=== PATIENT | female | born 1960 | race Caucasian/White ===

== ENCOUNTER 2019-08-23 16:02 | Inpatient (IN) | payer OTHER, SELFPAY ==
[2019-08-23 16:11] VITALS: BP 139/85; PULSE 70; RESP 16; TEMP 36.8; O2SAT 96; BMI 25.7
[2019-08-23 16:21] VITALS: RESP 16
--- NOTE | 2019-08-23 16:40 | ED_ITS ---
HPI - Psych General: Chief Complaint: Psychiatric Symptoms Stated Complaint: SI Time Seen by Provider: 08/23/19 16:23 Source: patient Mode of arrival: EMS Limitations: no limitations History of Present Illness: HPI Narrative: 58-year-old female patient with a history of depression who presents to the emergency department with complaints of a suicidal ideation. She was brought in by EMS. Her plan is to overdose on her pills. She states that she is out of options and at the end of her rope, she is all alone as her children do not like her. She was recently discharged from an inpatient rehab facility for alcohol. Because she is wanting some help she requested to be brought in here for evaluation. complaint: suicidal ideation Duration: constant Associated symptoms: Reports suicidal ideation Review of Systems General: Reports: 10 or more systems reviewed and unremarkable except in HPI and below Const: Denies: fever(s), chills or body aches Eyes: Denies: change in vision or blurry vision Card: Denies: palpitations, irregular heart rhythm, edema or swelling of feet/ankles Resp: Denies: dyspnea, productive cough or non-productive cough GI: Denies: abdominal pain, nausea or vomiting : Denies: flank pain, difficulty voiding, dysuria, urinary frequency, urinary urgency or urinary hesitancy Musc: Denies: neck pain, back pain or extremity swelling Skin/Breast: Denies: rash, pruritus or erythema Neuro: Denies: headache(s), numbness in extremities or weakness in extremities Psych: Reports: suicidal ideation Endo: Denies: polyuria, polydipsia or tired all the time [facility] ED PFSH: Social History Smoking and tobacco status: current every day smoker Physical Exam Const: COMMON NORMALS: no acute distress, average body habitus, patient oriented x3, no limitations, healthy appearing, alert and well nourished Neck/C-Spine: COMMON NORMALS: no meningeal signs and no JVD Resp: COMMON NORMALS: normal respiratory effort, No retractions, No use of accessory muscles, clear to auscultation bilaterally and percussion normal AUSCULTATION: clear to auscultation bilaterally PERCUSSION: percussion normal Cardio: COMMON NORMALS: no JVD, regular rate, regular rhythm, S1 normal heart sound present, S2 normal heart sound present, No gallops present (Cardio), No clicks present (Cardio), No murmurs present (Cardio), No rub (Cardio) and Peripheral pulses 2+ throughout RATE: regular rate RHYTHM: regular rhythm HEART SOUNDS: S1 normal heart sound present and S2 normal heart sound present PERIPHERAL PULSES: Peripheral pulses 2+ throughout GI: COMMON NORMALS: Normal to inspection, nondistended, normoactive bowel sounds present, Soft to palpation, non-tender, No hepatosplenomegaly present, no masses and no bruits PALPATION: Yes Soft to palpation and Yes No hepatosplenomegaly present : COMMON NORMALS: Yes no CVA tenderness BLADDER/KIDNEY EXAM: Yes no CVA tenderness Back/Pelvis: COMMON NORMALS: no CVA tenderness Extremity: COMMON NORMALS: normal to inspection, full ROM, capillary refill normal, no calf tenderness and no pedal edema Neuro: COMMON NORMALS: patient oriented x3 SENSORIUM/ORIENTATION: Yes alert MENINGEAL SIGNS: Yes no meningeal signs Skin: COMMON NORMALS: no rashes or lesions noted, no wounds, turgor normal, no jaundice, no petechiae and no mottling GENERAL SKIN EXAM: no rashes or lesions noted and turgor normal MDM - Psych MDM Narrative: Medical decision making narrative: 58-year-old homeless lady who presents to the emergency department with suicidal ideations. She has been medically cleared and is admitted to the neuropsychiatric unit for further evaluation and management. Lab Data: Labs: Lab Results 08/23/19 08/23/19 08/23/19 Range/Units 16:30 16:30 16:30 WBC (4.0-10.0) 10^3/ uL RBC (4.1-5.3) 10^6/u L Hgb (11.5-15.3) g/dL Hct (37.0-47.0) % MCV (81-99) fL MCH (28.0-34.0) pg MCHC (30.0-36.0) g/dL RDW (12.1-15.1) % Plt Count (130-400) 10^3/c mm MPV (7.4-10.4) fL Neut % (Auto) % Lymph % (Auto) % [place] % (Auto) % Eos % (Auto) % Baso % (Auto) % Neut # (Auto) (1.8-7.7) 10^3/u L Lymph # (Auto) (0.8-4.8) 10^3/u L [place] # (Auto) (0.2-0.9) 10^3/u L Eos # (Auto) (0.0-0.8) 10^3/u L Baso # (Auto) (0.0-0.1) 10^3/u L Nucleated RBC % (a uto) % Nucleated RBCs # /100WBC Sodium (136-145) mmol/L Potassium (3.5-5.1) mmol/L Chloride (98-107) mmol/L Carbon Dioxide (22-29) mmol/L Anion Gap (5-19) BUN (6-20) mg/dL Creatinine (0.5-0.9) mg/dL GFR Calculation (90-130) mL/min Glucose (65-115) mg/dL Calculated Osmolal ity (285-295) mOsm/k g Calcium (8.5-10.5) mg/dL Total Bilirubin (0.15-1.2) mg/dL AST (0-32) U/L ALT (0-33) U/L Alkaline Phosphata se (35-105) IU/L Total Protein (6.6-8.7) g/dL Albumin (3.5-5.2) g/dL Globulin (1.3-4.6) g/dL HCG, Qual Negative (Negative) Urine Color Yellow (Yellow) Urine Appearance Hazy A (CLEAR) Urine pH 6 (5-7) Ur Specific Gravit y 1.020 (1.005-1.030) Urine Protein Neg (Negative) Urine Glucose (UA) Norm (Normal) Urine Ketones 1+ H (Negative) Urine Blood 2+ H (Negative) Urine Nitrate Negative (Negative) Urine Bilirubin Neg (NEGATIVE) Urine Urobilinogen Norm (Negative) mg/dL Ur Leukocyte Keturah ase 2+ H (Negative) Urine RBC 0-4 H (0-2) /hpf Urine WBC 10-15 H (0-5) /hpf Ur Squamous Epith Cells 10-15 H (0-5) Amorphous Sediment Not Reportable Urine Bacteria 1+ H (NONE) Salicylates (3-10) mg/dL Urine Opiates Scre en Negative (Negative) ng/mL Acetaminophen (10-30) ug/mL Ur Barbiturates Sc reen Negative (Negative) ng/mL Ur Phencyclidine S crn Negative (Negative) ng/mL Ur Amphetamines Sc reen Negative (Negative) ng/mL U Benzodiazepines Scrn Positive H (Negative) ng/mL Urine Cocaine Scre en Negative (Negative) ng/mL U Marijuana (THC) Screen Negative (Negative) ng/mL Ethyl Alcohol (0-10) mg/dL 08/23/19 08/23/19 Range/Units 17:16 17:16 WBC 6.0 (4.0-10.0) 10^3/ uL RBC 4.19 (4.1-5.3) 10^6/u L Hgb 13.5 (11.5-15.3) g/dL Hct 39.4 (37.0-47.0) % MCV 94.0 (81-99) fL MCH 32.2 (28.0-34.0) pg MCHC 34.3 (30.0-36.0) g/dL RDW 13.3 (12.1-15.1) % Plt Count 318 (130-400) 10^3/c mm MPV 9.9 (7.4-10.4) fL Neut % (Auto) 57.7 % Lymph % (Auto) 29.4 % [place] % (Auto) 9.2 % Eos % (Auto) 2.7 % Baso % (Auto) 0.8 % Neut # (Auto) 3.4 (1.8-7.7) 10^3/u L Lymph # (Auto) 1.8 (0.8-4.8) 10^3/u L [place] # (Auto) 0.6 (0.2-0.9) 10^3/u L Eos # (Auto) 0.2 (0.0-0.8) 10^3/u L Baso # (Auto) 0.1 (0.0-0.1) 10^3/u L Nucleated RBC % (a uto) 0 % Nucleated RBCs # 0.0 /100WBC Sodium 124 L (136-145) mmol/L Potassium 4.0 (3.5-5.1) mmol/L Chloride 89 L (98-107) mmol/L Carbon Dioxide 24 (22-29) mmol/L Anion Gap 15.0 (5-19) BUN 12 (6-20) mg/dL Creatinine 0.7 (0.5-0.9) mg/dL GFR Calculation 85.6 L (90-130) mL/min Glucose 92 (65-115) mg/dL Calculated Osmolal ity 254 L (285-295) mOsm/k g Calcium 9.4 (8.5-10.5) mg/dL Total Bilirubin 0.4 (0.15-1.2) mg/dL AST 19 (0-32) U/L ALT 20 (0-33) U/L Alkaline Phosphata se 93 (35-105) IU/L Total Protein 6.2 L (6.6-8.7) g/dL Albumin 4.1 (3.5-5.2) g/dL Globulin 2.1 (1.3-4.6) g/dL HCG, Qual (Negative) Urine Color (Yellow) Urine Appearance (CLEAR) Urine pH (5-7) Ur Specific Gravit y (1.005-1.030) Urine Protein (Negative) Urine Glucose (UA) (Normal) Urine Ketones (Negative) Urine Blood (Negative) Urine Nitrate (Negative) Urine Bilirubin (NEGATIVE) Urine Urobilinogen (Negative) mg/dL Ur Leukocyte Keturah ase (Negative) Urine RBC (0-2) /hpf Urine WBC (0-5) /hpf Ur Squamous Epith Cells (0-5) Amorphous Sediment Urine Bacteria (NONE) Salicylates < 0.3 L (3-10) mg/dL Urine Opiates Scre en (Negative) ng/mL Acetaminophen < 5.0 L (10-30) ug/mL Ur Barbiturates Sc reen (Negative) ng/mL Ur Phencyclidine S crn (Negative) ng/mL Ur Amphetamines Sc reen (Negative) ng/mL U Benzodiazepines Scrn (Negative) ng/mL Urine Cocaine Scre en (Negative) ng/mL U Marijuana (THC) Screen (Negative) ng/mL Ethyl Alcohol < 10 (0-10) mg/dL Discharge Plan Discharge Patient Disposition: Admitted As Inpatient Admit Provider: Krasten Yates Clinical Impression: Suicidal ideation Condition: Stable Interventions: ED Discharge Assessment Last Done: 08/23/19 18:55 ED Charges Last Done: 08/23/19 18:55 Discharge Date/Time: 08/23/19 18:59 Coding Level of Care Code ED Cable Ferry Operator for Juan Smith
[2019-08-23 17:13] LABS: Urine Appearance Hazy (CLEAR); Urine Color Yellow (Yellow); pH Urine 6 (5-7)
[2019-08-23 17:14] LABS: Add Urine Microscopic? YES; Bilirubin Urine Neg (NEGATIVE); Blood Urine 2+ (Negative); Glucose Urine UA Norm (Normal); HCG Qualitative Urine. Negative (Negative); Ketones Urine 1+ (Negative); Leukocyte Esterase Urine 2+ (Negative); Nitrate Urine Negative (Negative); Protein Urine Neg (Negative); Urobilinogen Urine Norm (Negative)
[2019-08-23 17:20] LABS: Amphetamines Screen Urine Negative (Negative); Barbiturates Screen Urine Negative (Negative); Benzodiazepines Screen Urine Positive (Negative); Cocaine Screen Urine Negative (Negative); Opiate Screen Urine Negative (Negative); PCP Screen Urine Negative (Negative); THC Screen Urine Negative (Negative)
[2019-08-23 17:22] LABS: Add Urine Culture? No; Bacteria Urine 1+; RBC Urine 0-4 /hpf (0-2)
[2019-08-23] MEDS: nicotine 21 mg Patch 1 PATCH TRANSDERMA (17:24)
[2019-08-23 17:35] VITALS: PULSE 68; RESP 17; O2SAT 94
[2019-08-23 17:35] LABS: Basophils # 0.1 10^3/uL (0.0-0.1); Basophils % 0.8 %; Eosinophils # 0.2 10^3/uL (0.0-0.8); Eosinophils % 2.7 %; Hematocrit 39.4 % (37.0-47.0); Hemoglobin 13.5 g/dL (11.5-15.3); Lymphocytes # 1.8 10^3/uL (0.8-4.8); Lymphocytes % 29.4 %; Mean Corpuscular HGB Conc 34.3 g/dL (30.0-36.0); Mean Corpuscular Hemoglobin 32.2 pg (28.0-34.0); Mean Platelet Volume 9.9 fL (7.4-10.4); Monocytes # 0.6 10^3/uL (0.2-0.9); Monocytes % 9.2 %; Neutrophils # 3.4 10^3/uL (1.8-7.7); Neutrophils % 57.7 %; Nucleated Red Blood Cells % 0 %; Platelet Count 318 10^3/cmm (130-400); Red Blood Count 4.19 10^6/uL (4.1-5.3); Red Cell Distribution Width 13.3 % (12.1-15.1)
[2019-08-23 17:49] LABS: Alanine Aminotransferase 20 U/L (0-33); Albumin Level 4.1 g/dL (3.5-5.2); Alkaline Phosphatase 93 IU/L (35-105); Aspartate Amino Transferase 19 U/L (0-32); Blood Urea Nitrogen 12 mg/dL (6-20); Calcium 9.4 mg/dL (8.5-10.5); Carbon Dioxide 24 mmol/L (22-29); Chloride 89 mmol/L (98-107); Globulin 2.1 g/dL (1.3-4.6); Glomerular Filtration Rate 85.6 mL/min (90-130); Glucose 92 mg/dL (65-115); Osmolality Calculated 254 mOsm/kg (285-295); Sodium 124 mmol/L (136-145); Total Bilirubin 0.4 mg/dL (0.15-1.2); Total Protein 6.2 g/dL (6.6-8.7)
[2019-08-23 18:25] LABS: Acetaminophen < 5.0 ug/mL (10-30); Alcohol Level < 10 mg/dL (0-10); Salicylate < 0.3 mg/dL (3-10)
[2019-08-23 18:55] VITALS: BP 125/71; PULSE 70; RESP 16; O2SAT 95
--- NOTE | 2019-08-23 19:56 | PC.NURSE ---
Faint expiratory wheeze in left lower lobe.
--- NOTE | 2019-08-23 20:12 | PC.NURSE ---
The patient stated she does not have current use of EtOH or street drugs.
--- NOTE | 2019-08-23 20:17 | PC.NURSE ---
Faint expiratory wheeze in lower left lobe.
[2019-08-23 22:03] VITALS: BP 108/72; PULSE 72; RESP 22; TEMP 36.8; O2SAT 94
[2019-08-24 06:13] VITALS: BP 147/79; PULSE 70; RESP 20; TEMP 36.7; O2SAT 97
[2019-08-24 08:45] VITALS: PULSE 69; RESP 16; O2SAT 95
[2019-08-24] MEDS: gabapentin 400 mg Capsule PO ×3 (09:10→21:05)
[2019-08-24] MEDS: citalopram 20 mg Tablet PO (09:11)
[2019-08-24] MEDS: buPROPion SR (12 HR) 150 mg Tablet PO ×2 (09:11→17:47)
[2019-08-24] MEDS: amlodipine 5 mg Tablet PO (09:11)
[2019-08-24] MEDS: LORazepam 0.5 mg Tablet PO ×2 (09:15→17:47)
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
--- NOTE | 2019-08-24 13:55 | PC.RESP ---
Smoking Cessation information and a schedule of classes sent to patient.
[2019-08-24] MEDS: hyDROXYzine 25 mg Capsule 50 MG PO (14:47)
[2019-08-24 15:52] LABS: Bilirubin Urine Neg (NEGATIVE); Blood Urine Trace (Negative); Glucose Urine UA Norm (Normal); Ketones Urine 1+ (Negative); Leukocyte Esterase Urine Negative (Negative); Nitrate Urine Negative (Negative); Protein Urine Neg (Negative); Urine Appearance Clear (CLEAR); Urine Color Yellow (Yellow); Urobilinogen Urine Norm (Negative); pH Urine 6.5 (5-7)
[2019-08-24 16:22] LABS: Add Urine Culture? No; RBC Urine 0-4 /hpf (0-2); Squamous Epithelial Cell Urine 0-4 (0-5)
[2019-08-24] MEDS: zolpidem 5 mg Tablet PO (21:05)
[2019-08-24 21:06] VITALS: PULSE 71; RESP 16; O2SAT 98
[2019-08-24 21:37] VITALS: BP 145/84; PULSE 68; RESP 17; TEMP 36.7; O2SAT 95
[2019-08-25 06:00] VITALS: BP 134/81; PULSE 76; RESP 16; TEMP 36.6; O2SAT 94
[2019-08-25] MEDS: buPROPion SR (12 HR) 150 mg Tablet PO (08:21)
[2019-08-25] MEDS: gabapentin 400 mg Capsule PO ×3 (08:21→20:52)
[2019-08-25] MEDS: LORazepam 0.5 mg Tablet PO ×2 (08:22→17:38)
[2019-08-25] MEDS: amlodipine 5 mg Tablet PO (08:23)
[2019-08-25] MEDS: citalopram 20 mg Tablet PO (08:23)
[2019-08-25 09:01] VITALS: PULSE 93; RESP 18; O2SAT 98
--- NOTE | 2019-08-25 11:17 | P.PN_ITS ---
Subjective NPU Subjective: Interval history: Shantelle presented today very clear about her interest in something for my anxiety. She was only able to say it was something mixed with Haldol when she would get medication in hospitalized settings. Seeming to allude to Ativan or something like that. We discussed the fact that our desire would be for her to have something non-addictive and her an swer to that was that what ever was being given would not have to be given outside of the hospital. I was clear that the goal would be that it would be something that can be given outside the hospital. She reported that she thought that Haldol was helpful and could she start that which I reported she already had it for as needed use if she should use it. She then tried to get the nurse to mix something in there with the Haldol it might help with anxiety giving the impression that she is very aware of what she is doing. Mental Status Exam MSE Comments: This is a well-nourished, well-developed, white female, with adequate dress, grooming, and eye contact. No abnormal movements, except for mild psychomotor retardation. Cooperative with exam in no acute distress. Speech was decreased rate and volume. Mood described as anxious; affect subdued. Thought process, organized. Thought content: patient is endorsing suicidal ideation, This is a well-nourished, well-developed, white female, with adequate dress, grooming, and eye contact. No abnormal movements, except for mild psychomotor retardation. Cooperative with exam in no acute distress. Speech was decreased rate and volume. Mood described as okay; affect congruent. Thought process, organized. Thought content: patient is still endorsing suicidal ideation, but denied homicidal ideation; there were no delusions reported or noted, patient denied any auditory or visual hallucinations. Attention, concentration, and memory appear intact but none were formally tested. She is alert and oriented times three. Insight and judgment are limited. 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 Continue current medication. We will consider discontinuing of some medications to streamline her regimen. Continue q-15 minute checks for safety. Encourage individual and milieu therapy. Will explore medications and see if we can clean up her medication regime. Involuntary Hold Information 96 Hour Hold: 96 Hour Involuntary Admission: No Attestations NPU Medical Necessity Statement*: Inpatient hospitalization is medically necessary and the clinically appropriate intervention, at this time. We will review medications and consider changes as appropriate. Likely length of stay is 2-3 days. Coding Level of Care Code Acute Amusement Or Recreation Card Checker for Juan Smith
[2019-08-25] MEDS: haloperidol 5 mg Tablet PO (11:43)
--- NOTE | 2019-08-25 11:43 | PC.NURSE ---
Pt given 5mg haldol p.o. as ordered prn per Dr. Yates request. Staff will continue to monitor.
[2019-08-25 14:00] VITALS: BP 123/84; PULSE 102; RESP 19; TEMP 37
[2019-08-25] MEDS: hyDROXYzine 25 mg Capsule 50 MG PO (14:09)
--- NOTE | 2019-08-25 14:09 | PC.NURSE ---
Addendum entered by Jennifer Quinteros LPN 08/25/19 16:10: prn med effective no further c/o anxiety Original Note: PRN VISTARIL 50 MG GIVEN PO PER PT C/O STATED ANXIETY. PT HAS ISOLATED TO ROOM MOST OF THE DAY. WILL CONT TO MONITOR.
[2019-08-25] MEDS: buPROPion SR (12 HR) 100 mg Tablet 200 MG PO (17:38)
[2019-08-25] MEDS: zolpidem 5 mg Tablet PO (20:52)
[2019-08-25 21:00] VITALS: PULSE 86; RESP 16; O2SAT 96
[2019-08-25 22:00] VITALS: BP 120/84; PULSE 91; RESP 18; TEMP 36.8; O2SAT 95
[2019-08-26 06:00] VITALS: BP 143/78; PULSE 74; RESP 17; TEMP 36.6; O2SAT 93
[2019-08-26 08:56] VITALS: PULSE 93; RESP 17; O2SAT 96
[2019-08-26] MEDS: gabapentin 400 mg Capsule PO ×3 (09:40→20:37)
[2019-08-26] MEDS: LORazepam 0.5 mg Tablet PO ×2 (09:40→18:01)
[2019-08-26] MEDS: amlodipine 5 mg Tablet PO (09:40)
[2019-08-26] MEDS: hyDROXYzine 25 mg Capsule 50 MG PO ×2 (09:40→20:37)
[2019-08-26] MEDS: citalopram 20 mg Tablet PO (09:40)
[2019-08-26] MEDS: buPROPion SR (12 HR) 100 mg Tablet 200 MG PO ×2 (09:40→18:01)
[2019-08-26] MEDS: haloperidol 5 mg Tablet PO (11:44)
--- NOTE | 2019-08-26 13:45 | P.PN_ITS ---
Subjective NPU Subjective: Interval history: Shantelle presented today reporting that that Haldol has been helpful and she is wondering if she can have it once she leaves. She reports that it calms her down and helps with her anxiety. We discussed the risks benefits and alternatives of adding Haldol as a scheduled medication and she understood and agreed to proceed as is documented in this note. We discussed the fact that the treatment team would convene tomorrow morning and we would try to see what options are available for her out of there in the community with a tentative discharge for the beginning of the week. Mental Status Exam MSE Comments: This is a well-nourished, well-developed, white female, with adequate dress, grooming, and eye contact. Who appears to be wearing a wig. No abnormal movements, except for mild psychomotor retardation. Cooperative with exam in no acute distress. Speech was decreased rate and volume. Mood described as a little better; affect less subdued. Thought process, organized. Thought content: patient denied suicidal or homicidal ideation; there were no delusions reported or noted, patient denied any auditory or visual hallucinations. Attention, concentration, and memory appear intact but none were formally tested. She is alert and oriented times three. Insight and judgment are limited. Vitals/I&O/Wt Last Vital Signs Temp 98.2 F 08/26/19 20:28 Pulse 71 08/26/19 20:28 Resp 15 08/26/19 20:28 BP 123/74 08/26/19 20:28 Pulse Ox 97 08/26/19 20:28 Weight last 48 hrs Weight 65.544 kg Data NPU : 08/23/19 17:16 08/23/19 17:16 A&P Additional A&P Information (1) Suicidal ideation: (2) Malingering: (3) Alcohol abuse: (4) Depressed: (5) Anxiety: This is a 58 year old, white female, with depressive disorder, unspecified, anxiety disorder, unspecified, and alcohol use disorder, severe, in remission, who presents on significant amounts of medication with a reported desire to consider medication changes. Continue current medication. Start Haldol 5 mg p.o. every morning 2 see if a standing dose might help. We will consider discontinuing some of her Seroquel. Continue q-15 minute checks for safety. Encourage individual and milieu therapy. Will explore medications and see if we can clean up her medication regime. Involuntary Hold Information 96 Hour Hold: 96 Hour Involuntary Admission: No Attestations NPU Medical Necessity Statement*: Inpatient hospitalization is medically necessary and the clinically appropriate intervention, at this time. We will review medications and consider changes as appropriate. Likely length of stay is 1-2 days. Coding Level of Care Code Acute Senior Information Security Architect for Juan Smith
[2019-08-26 14:00] VITALS: BP 114/77; PULSE 84; RESP 18; TEMP 37.1
[2019-08-26 20:20] VITALS: PULSE 101; RESP 16; O2SAT 98
[2019-08-26 20:28] VITALS: BP 123/74; PULSE 71; RESP 15; TEMP 36.8; O2SAT 97
[2019-08-26] MEDS: zolpidem 5 mg Tablet PO (20:37)
--- NOTE | 2019-08-26 21:10 | PC.NURSE ---
pt given scheduled gabapentin and seroquel as well as ambien and vistaril per request.
[2019-08-27 06:00] VITALS: BP 129/96; PULSE 66; RESP 14; TEMP 36.6; O2SAT 96
[2019-08-27] MEDS: citalopram 20 mg Tablet PO (08:25)
[2019-08-27] MEDS: amlodipine 5 mg Tablet PO (08:26)
[2019-08-27] MEDS: LORazepam 0.5 mg Tablet PO ×2 (08:26→17:00)
[2019-08-27] MEDS: gabapentin 400 mg Capsule PO ×3 (08:26→20:52)
[2019-08-27] MEDS: buPROPion SR (12 HR) 100 mg Tablet 200 MG PO ×2 (08:27→16:59)
[2019-08-27] MEDS: haloperidol 5 mg Tablet PO (08:27)
[2019-08-27 08:30] VITALS: PULSE 88; RESP 18; O2SAT 95
--- NOTE | 2019-08-27 09:34 | PM.NPN ---
Subjective NPU Subjective: Interval history: Shantelle presented today reporting that she is working with social work to possibly get a ticket back to the area where she was in the [facility] tomorrow. She is doing fine on the medication and tolerated the Haldol standing dose this morning and reports that she is eating and sleeping well. Mental Status Exam MSE Comments: This is a well-nourished, well-developed, white female, with adequate dress, grooming, and eye contact. Who appears to be wearing a wig. No abnormal movements, except for mild psychomotor retardation. Cooperative with exam in no acute distress. Speech was decreased rate and volume. Mood described as a little better; affect less subdued. Thought process, organized. Thought content: patient denied suicidal or homicidal ideation; there were no delusions reported or noted, patient denied any auditory or visual hallucinations. Attention, concentration, and memory appear intact but none were formally tested. She is alert and oriented times three. Insight and judgment are limited. Vitals/I&O/Wt Last Vital Signs Temp 97.7 F 08/27/19 22:00 Pulse 73 08/27/19 22:00 Resp 18 08/27/19 22:00 BP 138/78 08/27/19 22:00 Pulse Ox 95 08/27/19 22:00 Weight last 48 hrs Weight 65.544 kg Data NPU : 08/23/19 17:16 08/23/19 17:16 A&P Additional A&P Information (1) Suicidal ideation: (2) Malingering: (3) Alcohol abuse: (4) Depressed: (5) Anxiety: This is a 58 year old, white female, with depressive disorder, unspecified, anxiety disorder, unspecified, and alcohol use disorder, severe, in remission, who presents on significant amounts of medication with a reported desire to consider medication changes. Continue current medication. Continue q-15 minute checks for safety. Encourage individual and milieu therapy. Will explore medications and see if we can clean up her medication regime. Involuntary Hold Information 96 Hour Hold: 96 Hour Involuntary Admission: No Attestations NPU Medical Necessity Statement*: Inpatient hospitalization is medically necessary and the clinically appropriate intervention, at this time. We will review medications and consider changes as appropriate. Likely length of stay is 1-2 days. Coding Level of Care Code Acute Acoustic Engineer for Juan Smith
[2019-08-27 13:49] VITALS: BP 110/76; PULSE 73; RESP 18; TEMP 36.5; O2SAT 96
[2019-08-27 19:30] VITALS: PULSE 87; RESP 17; O2SAT 97
[2019-08-27] MEDS: trazodone 50 mg Tablet PO (20:51)
[2019-08-27] MEDS: hyDROXYzine 25 mg Capsule 50 MG PO (20:51)
[2019-08-27] MEDS: quetiapine 100 mg Tablet 400 MG PO (20:52)
[2019-08-27 22:00] VITALS: BP 138/78; PULSE 73; RESP 18; TEMP 36.5; O2SAT 95
[2019-08-28 06:00] VITALS: BP 151/89; PULSE 90; RESP 17; TEMP 36.6; O2SAT 97
[2019-08-28] MEDS: LORazepam 0.5 mg Tablet PO (08:06)
[2019-08-28] MEDS: haloperidol 5 mg Tablet PO (08:06)
[2019-08-28] MEDS: gabapentin 400 mg Capsule PO (08:06)
[2019-08-28] MEDS: amlodipine 5 mg Tablet PO (08:06)
[2019-08-28] MEDS: citalopram 20 mg Tablet PO (08:06)
[2019-08-28] MEDS: buPROPion SR (12 HR) 100 mg Tablet 200 MG PO (08:07)
[2019-08-28 08:23] VITALS: PULSE 77; RESP 18; O2SAT 94
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
[2019-08-28 11:12] VITALS: PULSE 77; RESP 18; O2SAT 94
== END 2019-08-28 12:43 | disposition home or self-care (01) | DRG 880 ==
LOC: ER 18:56 → NP 19:17
PROVIDERS: Family Medicine; Admitting Provider Psychiatry & Neurology Psychiatry; Visit Provider Psychiatry & Neurology Psychiatry
DX: F41.8 Other specified anxiety disorders (principal); R45.851 Suicidal ideations; F10.229 Alcohol dependence with intoxication, unspecified; Z76.5 Malingerer [conscious simulation]; I10 Essential (primary) hypertension; Z59.0 Homelessness; Z62.810 Personal history of physical and sexual abuse in childhood; Z62.811 Personal history of psychological abuse in childhood; F17.210 Nicotine dependence, cigarettes, uncomplicated
CPT/HCPCS: 12345; 36415; 80053; 80306; 80307; 81001; 81025; 85025; 94640; 99284; A9270; J3535